=== PATIENT | male | born 1975 | race American Indian/Alaskan Native ===

== ENCOUNTER 2021-02-15 13:46 | Outpatient (CLI) | payer OTHER ==
--- NOTE | 2021-02-15 14:50 | XRay Report ---
RIGHT SHOULDER 4 VIEWS INDICATION / CLINICAL INFORMATION: RIGHT SHOULDER PAIN M25.511. COMPARISON: None available. FINDINGS: A 2 cm lucency is seen in the lateral cortex of the proximal humerus and is of unknown clinical signi ficance. No other significant skeletal abnormality. MRI of the right humerus with and without contras t may be helpful for further evaluation if clinically indicated Signer Name: Syd PATTERSON Signed: 02/15/2021 2:46 PM Workstation Name: [id number]
== END 2021-02-15 13:47 | disposition home or self-care (01) ==
LOC: SPVIMAG 13:46
PROVIDERS: ATTEND Urology
DX: M25.511 Pain in right shoulder (principal)